=== PATIENT | female | born 1950 | race Caucasian/White ===

== ENCOUNTER → 2017-01-04 | Outpatient (CLI) | payer OTHER | LOC: HYPER 07:03 | DX: S61.501A Unspecified open wound of right wrist, initial encounter (principal); M10.031 Idiopathic gout, right wrist; H26.9 Unspecified cataract; M19.90 Unspecified osteoarthritis, unspecified site; Z90.710 Acquired absence of both cervix and uterus; Z87.891 Personal history of nicotine dependence; X58.XXXA Exposure to other specified factors, initial encounter; Y93.89 Activity, other specified; Y92.89 Other specified places as the place of occurrence of the external cause; Y99.8 Other external cause status ==

== ENCOUNTER → 2017-01-17 | Outpatient (CLI) | payer OTHER | LOC: HYPER 07:09 | DX: S61.501D Unspecified open wound of right wrist, subsequent encounter (principal); M19.90 Unspecified osteoarthritis, unspecified site; M10.031 Idiopathic gout, right wrist; M25.531 Pain in right wrist; M79.601 Pain in right arm; Z87.891 Personal history of nicotine dependence; Z90.710 Acquired absence of both cervix and uterus; X58.XXXD Exposure to other specified factors, subsequent encounter ==